=== PATIENT | female | born 1975 | race Caucasian/White ===

== ENCOUNTER 2019-04-22 12:59 | Emergency (ER) | payer SELFPAY ==
[~2019-04-22] VITALS: Ht 175.3 cm; Wt 70.0 kg
[~2019-04-22 12:59] MED LIST: AZIT-63 PO; CARI350T PO; POTA20TA19 PO; PSEU-225 PO; ZOLP10TA5 PO
[2019-04-22 13:08] VITALS: BP 99/63
[2019-04-22] MEDS ORDERED: PRED20TA PO (14:25)
[2019-04-22] MEDS ORDERED: ALBU6.7H9 INH (14:25)
[2019-04-22] MEDS ORDERED: AMOX-419 PO (14:25)
== END 2019-04-22 14:37 | disposition home or self-care (01) ==
LOC: ER 13:00
DX: J01.90 Acute sinusitis, unspecified (principal); G43.909 Migraine, unspecified, not intractable, without status migrainosus; G89.29 Other chronic pain; Z98.890 Other specified postprocedural states; Z90.710 Acquired absence of both cervix and uterus; Z79.2 Long term (current) use of antibiotics; Z79.899 Other long term (current) drug therapy
CPT/HCPCS: 99283